=== PATIENT | male | born 1990 | race African-American/Black ===

== ENCOUNTER 2020-02-21 23:33 | Emergency (ER) | payer OTHER ==
[~2020-02-21] VITALS: Ht 180.3 cm; Wt 74.5 kg
[~2020-02-21 23:33] MED LIST: AMOXICILLIN500 MG PO; LORTAB5 PO; SILVADENE1 % TOP; TORADOL OR; ULTRAM50 M1 PO; ULTRAM50 MG OR; ZOFRAN ODT4 MG SL
[2020-02-22 00:22] LABS: HEMATOCRIT 50.9 % (39.0-50.0); HEMOGLOBIN 16.7 g/dl (14.0-18.0); IMMATURE GRANULOCYTES 0.2 % (0.0-5.0); MEAN CELL VOLUME 87.9 fL CALC (80.0-100.0); MEAN CORPUSCULAR HGB 28.8 pG CALC (26.0-32.0); MEAN CORPUSCULAR HGB CONC 32.8 g/dL CAL (32.0-36.0); NEUT# 2.89 thou/uL (1.82-7.42); RED BLOOD COUNT 5.79 mill/uL (4.70-6.10); RED CELL DISTRI WIDTH 13.8 % (11.5-15.5)
[2020-02-22 00:56] VITALS: BP 136/89
--- NOTE | 2020-02-24 17:57 | NUR ---
Notified patient of positive Covid results. Advised patient to quarantine until contacted by [facility] with further instructions. Patient denies dyspnea or fever. Patient c/o cough only. Advised patient to return to ED with increase in symptoms, difficulty breathing, high fever or other urgent needs. Patient verbalized understanding.
== END 2020-02-22 01:10 | disposition home or self-care (01) | DRG 179 ==
LOC: ED 23:33
PROVIDERS: Family Medicine
DX: U07.1 COVID-19 (principal)

== ENCOUNTER 2022-03-17 20:21 | Emergency (ER) | payer OTHER ==
[~2022-03-17] VITALS: Ht 180.3 cm; Wt 70.9 kg
[2022-03-17 21:33] VITALS: BP 153/100
[2022-03-17] MEDS ORDERED: VOLTAREN75 MG PO (22:22)
[2022-03-17] MEDS ORDERED: ORPHENADRINE100 MG PO (22:22)
[2022-03-17 22:43] VITALS: BP 129/82
[2022-03-17 22:45] VITALS: BP 136/86
[2022-03-17 23:00] VITALS: BP 134/82
[2022-03-17 23:05] VITALS: BP 134/82
== END 2022-03-17 23:12 | disposition home or self-care (01) | DRG 552 ==
LOC: ED 20:21
DX: S16.1XXA Strain of muscle, fascia and tendon at neck level, initial encounter (principal); X50.0XXA Overexertion from strenuous movement or load, initial encounter; Y92.009 Unspecified place in unspecified non-institutional (private) residence as the place of occurrence of the external cause

== ENCOUNTER 2023-02-13 01:07 | Emergency (ER) | payer OTHER ==
[~2023-02-13] VITALS: Ht 180.3 cm; Wt 73.0 kg
[~2023-02-13 01:07] MED LIST changes: +ORPHENADRINE100 MG PO; +VOLTAREN75 MG PO
[2023-02-13 01:22] VITALS: BP 131/93
[2023-02-13 03:21] LABS: URINE BILIRUBIN - DIPSTICK NEGATIVE (NEGATIVE); URINE BLOOD DIPSTICK NEGATIVE (NEGATIVE); URINE COLOR YELLOW; URINE GLUCOSE - DIPSTICK NEGATIVE (NEGATIVE); URINE KETONE NEGATIVE (NEGATIVE); URINE LEUK ESTERASE NEGATIVE (NEGATIVE); URINE PROTEIN - DIPSTICK NEGATIVE (NEG-TRACE); URINE SPECIFIC GRAVITY >=1.030; URINE UROBILINOGEN - DIPSTICK 0.2 E.U./dL (0.2)
[2023-02-13 03:25] LABS: URINE NITRITE - DIPSTICK NEGATIVE (Negative)
[2023-02-13] MEDS ORDERED: VOLTAREN - GENE75 MG PO (04:00)
[2023-02-13] MEDS ORDERED: CYCLOBENZAPRINE10 MG PO (04:00)
[2023-02-13 04:15] VITALS: BP 126/78
== END 2023-02-13 04:18 | disposition home or self-care (01) | DRG 552 ==
LOC: ED 01:07
PROVIDERS: Emergency Medicine
DX: M54.2 Cervicalgia (principal)